=== PATIENT | female | born 1985 | race Caucasian/White ===

== ENCOUNTER → 2016-06-17 | Outpatient (CLI) | payer OTHER ==
[~2016-06-17] MED LIST: AMT50 PO; BUPR-79 PO; CLON0.5T3 PO; CTP/1 PO; DIPH-416 PO; GABA-113 PO; HYDR25CA PO; LEVO75TA5 PO; LINA1CAP; METH10TA32 PO; PANT40TA PO; POLY335019 PO; PREG1CAP34 PO; TOPI100T20 PO
--- NOTE | 2016-06-17 11:33 | DIAGNOSTIC IMAGING REPORT ---
MRI OF THE CERVICAL SPINE WITH FLEXION AND EXTENSION VIEWS, INCLUDING CSF FLOW STUDY. CLINICAL HISTORY: Neck pain with bilateral shoulder radiculopathy. COMPARISON STUDY: No previous studies for comparison. FINDINGS: There is no evidence of acute or malformation. No intrinsic thoracic cord lesions are visualized. No disc herniations are visualized. There is no spinal or foraminal stenosis. There is no evidence of instability on flexion or extension. Cerebral spinal flow is present both anterior and posterior to the cord in flexion. There is diminished flow dorsal to the cord with the neck in the neutral position and in extension. IMPRESSION: 1. No intrinsic cervical cord lesions identified 2. No disc herniations identified. No evidence of spinal or foraminal stenosis. 3. No evidence of instability on flexion or extension. Electronically signed by: Julio Vallejo M.D. 06/17/2016 11:32 AM Dictated Date/Time: 06/17/2016 11:20 AM
== END | disposition home or self-care (01) ==
LOC: C.MRI 09:58
DX: M54.2 Cervicalgia (principal)

== ENCOUNTER → 2016-08-19 | Outpatient (CLI) | payer OTHER ==
[~2016-08-19] MED LIST changes: +SINCALIDE INJ 1.4 MCG in SODIUM CHLORIDE 0.9% 100ML 100 ML IV ONE
--- NOTE | 2016-08-19 10:13 | DIAGNOSTIC IMAGING REPORT ---
NUCLEAR MEDICINE HEPATOBILIARY SCAN WITH EJECTION FRACTION HISTORY: Pain ABD PAIN, ABNORMAL ABD CT SCAN COMPARISON: None. TECHNIQUE: Immediately following the intravenous administration of 5 mCi Tc-99m Choletec, dynamic anterior abdominal imaging pre/post 1.5 mcg of Kinevac was performed. FINDINGS: Uniform hepatic tracer accumulation is shown. Prompt intrahepatic biliary excretion is seen. The gallbladder, common bile duct, and small bowel are all visualized by 60 minutes. This appearance represents the normal sequence of biliary excretion. Delayed isotope passes to the small bowel which may indicate distal common duct sphincter dysfunction The gallbladder ejection fraction following administration of Kinevac was 95 % (normal >35%). IMPRESSION: 1. No evidence for cystic duct obstruction. 2. Gallbladder ejection fraction calculated to be 95 %. 3. Delayed passage of isotope to the small bowel which may indicate a component of distal common duct sphincter dysfunction Electronically signed by: Noah Hoffamn M.D. 08/19/2016 10:12 AM Dictated Date/Time: 08/19/2016 10:10 AM
== END | disposition home or self-care (01) ==
LOC: C.NUCL 07:45
DX: R10.9 Unspecified abdominal pain (principal); R93.5 Abnormal findings on diagnostic imaging of other abdominal regions, including retroperitoneum

== ENCOUNTER → 2017-04-22 | Outpatient (CLI) | payer OTHER ==
[~2017-04-22] MED LIST changes: -AMT50 PO; -DIPH-416 PO; -LEVO75TA5 PO; -LINA1CAP; -SINCALIDE INJ 1.4 MCG in SODIUM CHLORIDE 0.9% 100ML 100 ML IV ONE; -TOPI100T20 PO
[2017-04-22 13:30] LABS: HEPATITIS B AB POS
[2017-04-22 13:38] LABS: ALKALINE PHOSPHATASE 114 U/L (45-117); ALT/SGPT 170 U/L (12-78); AST/SGOT 89 U/L (15-37); IMMUNOGLOBULN M 93.6 mg/dL (40-230); RHEUMATOID FACTOR < 10.0 U/mL (0-15)
[2017-04-22 14:54] LABS: LYME DISEASE AB IGG NEG (NEG); LYME DISEASE AB IGM NEG (NEG)
[2017-04-26 23:24] LABS: ENDOMYSIAL IGA AB TC 15064 Negative (Negative); GLIADIN DEAMIDATED IgA AB 2 UNITS (<20); GLIADIN DEAMIDATED IgG AB 3 UNITS (<20)
== END | disposition home or self-care (01) ==
LOC: C.LAB 12:27
DX: K75.9 Inflammatory liver disease, unspecified (principal)

== ENCOUNTER 2017-05-30 08:32 | Day surgery (SDC) | payer OTHER ==
[2017-05-30] VITALS (7 sets, daily range): BP systolic 112–133; BP diastolic 56–68; PULSE 63–74; TEMP 36.5–36.9; O2SAT 96–100; Ht 167.6 cm; Wt 74.4 kg
[~2017-05-30] VITALS: Ht 167.6 cm; Wt 74.4 kg
[2017-05-30] MEDS ORDERED: TOPI25TA99 PO (08:51)
[2017-05-30] MEDS ORDERED: LEVO100T PO (08:51)
--- NOTE | 2017-05-30 10:58 | Discharge Instructions ---
Discharge Instructions Procedure Procedure Date: May 30, 2017. Reason for visit: Chronic Encephalitis *W/Opening Pressure*. Discharge Discharge Date: May 30, 2017. Discharge Diagnosis: same Instructions Activity Recommendations: No limitations Return to School/Work: no limitations Recommended Home Diet: Resume Previous Diet Provider Instructions: ACTIVITY RECOMMENDATIONS: * Rest today. * Resume regular activity in one day. MEDICATIONS: * May take Tylenol or Ibuprofen as needed for pain. DIET: * Resume previous diet. SPECIAL CARE INSTRUCTIONS: Call your doctor if: * Temperature above 101 degrees F. * Pain not relieved by pain medicine ordered. * Increased drainage or redness from incision. * Notify your doctor with any questions or concerns. Call your doctor or go to the nearest Emergency Department if you experience: * Increased chest pain or shortness of breath. FOLLOW UP VISIT: Follow-up with Referring Physician as scheduled. Allergies Coded Allergies: Valproic Acid (Verified Allergy, Unknown, HIVES, 05/30/17) Bacitracin (Verified Adverse Reaction, Unknown, RASH, 05/30/17) Raghu Anderson Recommendations: Call your doctor if: * Temperature above 101 degrees * Pain not relieved by pain medicine ordered * There is increased drainage or redness from any incision * You have any unanswered questions or concerns. Your Doctors Instructions noted above were prepared by provider Norberto Saez. Patient Signature Section: Patient Instructions Signature Page Shahana Spaulding Patient (or Guardian) Signature/Date: I have read and understand the instructions given to me by my caregivers. Caregiver/RN/Doctor Signature/Date: The above-named patient and/or guardian has received patient instructions on this date. + Original Patient Signature Page (only) stays with chart. Please make copy for patient.
[2017-05-30] MEDS ORDERED: ACETAMINOPHEN 500 MG TAB PO PRN (11:00)
--- NOTE | 2017-05-30 11:00 | DIAGNOSTIC IMAGING REPORT ---
FLUOROSCOPICALLY GUIDED LUMBAR PUNCTURE CLINICAL HISTORY: Chronic and cellulitis. Headaches. FLUOROSCOPY TIME: 0.2 minutes. A single fluoroscopic spot image of the lumbar spine PROCEDURE: The procedure, risks and benefits were discussed with the patient including the risk of spinal headache, bleeding and infection. The patient agreed to the procedure and informed written consent was obtained. The procedure was performed by Dr. Saez following a timeout. The left L5-S1 interlaminar space was targeted. Skin overlying the space was prepped and draped in the usual sterile fashion and local anesthesia was achieved with 1% lidocaine. Under intermittent fluoroscopic guidance, a 20-gauge x 3 1/2 in. Sprotte needle was inserted into the thecal sac. A total of 12cc of clear, colorless cerebral spinal fluid was obtained and spread amongst 4 vials. The patient tolerated the procedure well. There were no immediate complications. The specimens were sent to the laboratory at the request of the referring physician. IMPRESSION: Successful fluoroscopic guided lumbar puncture with removal of 12 cc of clear, colorless cerebral spinal fluid. No immediate complications. Opening pressure was 17.8 cm of H2O. Electronically signed by: Norberto Saez M.D. 05/30/2017 10:59 AM Dictated Date/Time: 05/30/2017 10:58 AM
[2017-05-30 11:09] LABS: CSF GLUCOSE 50 mg/dl (40-70); CSF TOTAL PROTEIN 73.1 mg/dl (15.0-45.0)
[2017-05-30 11:20] LABS: BASO % 0.8 %; BASO ABS # 0.05 K/uL (0-0.2); EOS % 2.2 %; EOS ABS # 0.14 K/uL (0-0.5); HEMATOCRIT 39.8 % (37-47); HEMOGLOBIN 13.5 g/dL (12.0-16.0); IG# 0.05 K/uL (0.00-0.02); LYMPH % 34.1 %; LYMPH ABS # 2.17 K/uL (1.2-3.4); MEAN CELL VOLUME 95.7 fL (80-100); MEAN CORPUSCULAR HEMOGLOBIN 32.5 pg (25-34); MEAN PLATELET VOLUME 10.5 fL (7.4-10.4); MONO % 10.5 %; MONO ABS # 0.67 K/uL (0.11-0.59); NEUT % 51.6 %; NEUT ABS # 3.28 K/uL (1.4-6.5); PLATELET COUNT 212 K/uL (130-400); RED CELL DISTRIBUTION WIDTH CV 13.5 % (11.5-14.5); RED CELL DISTRIBUTION WIDTH SD 46.3 fL (36.4-46.3); WHITE BLOOD COUNT 6.36 K/uL (4.8-10.8)
[2017-05-30 11:25] LABS: MEAN CORPUSCULAR HGB CONC 33.9 g/dl (32-36)
[2017-05-30 11:41] LABS: ALBUMIN 4.1 gm/dl (3.4-5.0); ALT/SGPT 53 U/L (12-78); AST/SGOT 12 U/L (15-37); BLOOD UREA NITROGEN 20 mg/dl (7-18); CALCIUM 8.7 mg/dl (8.5-10.1); CARBON DIOXIDE 30 mmol/L (21-32); CREATININE 0.71 mg/dl (0.60-1.20); GLUCOSE 85 mg/dl (70-99); POTASSIUM 3.9 mmol/L (3.5-5.1); SODIUM 136 mmol/L (136-145)
[2017-05-30 11:46] LABS: ALKALINE PHOSPHATASE 56 U/L (45-117); TOTAL PROTEIN 6.9 gm/dl (6.4-8.2)
== END 2017-05-30 13:35 | disposition home or self-care (01) ==
LOC: C.ACU 08:32
DX: R50.9 Fever, unspecified (principal)